=== PATIENT | female | born 1960 | race Caucasian/White ===

== ENCOUNTER 2021-02-13 11:17 | Day surgery (SDC) | payer BC ==
[~2021-02-13] VITALS: Ht 165.1 cm; Wt 129.1 kg
[~2021-02-13 11:17] MED LIST: CHOL10003 PO; DOXY50CA2 PO; GABA-827 PO
[2021-02-13] MEDS ORDERED: LACTATED RINGERS 1,000 ML IV SCH (11:30)
[2021-02-13] MEDS ORDERED: CHLORHEXIDINE 15 ML UDC PO ONE (11:30)
[2021-02-13 11:41] VITALS: BP 135/94
[2021-02-13] MEDS ORDERED: ONDANSETRON 2MG/ML, 2ML IVPush PRN (14:00)
[2021-02-13] MEDS ORDERED: PROMETHAZINE 25 MG/ML, 1ML IVPush PRN (14:00)
[2021-02-13] MEDS ORDERED: LABETALOL 5MG/ML, 20ML IV PRN (14:00)
[2021-02-13] MEDS ORDERED: PROMETHAZINE 25 MG SUPP PR PRN (14:00)
[2021-02-13] MEDS ORDERED: ACETAMINOPHEN 325 MG TABLET PO PRN (14:00)
[2021-02-13] MEDS ORDERED: hydrALAzine 20 MG/ML, 1ML IV PRN (14:00)
[2021-02-13] MEDS ORDERED: OXYcodone 5 MG/5 ML ORAL.SOL UDC PO PRN (14:00)
[2021-02-13] MEDS ORDERED: FENTANYL PF 100 MCG/2ML IV PRN (14:00)
[2021-02-13] MEDS ORDERED: PROPOFOL 10 MG/ML, 20ML ONE (16:48)
== END 2021-02-13 15:06 | disposition home or self-care (01) ==
LOC: OUT 11:17
PROVIDERS: ATTEND Internal Medicine Geriatric Medicine
DX: Z12.11 Encounter for screening for malignant neoplasm of colon (principal); R13.19 Other dysphagia; K22.10 Ulcer of esophagus without bleeding; E66.01 Morbid (severe) obesity due to excess calories
CPT/HCPCS: 43239; 45378; 88305; J2704; J7120